=== PATIENT | male | born 2000 | race African-American/Black ===

== ENCOUNTER 2020-10-07 03:23 | Emergency (ER) | payer SELFPAY ==
[2020-10-07] MEDS ORDERED: Ondansetron PF 4 MG/2 ML Vial ONE (03:50)
== END 2020-10-07 04:50 | disposition home or self-care (01) ==
LOC: CSHERS 03:23
DX: F12.10 Cannabis abuse, uncomplicated (principal); R11.2 Nausea with vomiting, unspecified; R00.0 Tachycardia, unspecified
CPT/HCPCS: 93005; 96374; J2405